=== PATIENT | male | born 1975 | race Caucasian/White ===

== ENCOUNTER 2017-02-20 21:24 | Emergency (ER) | payer OTHER ==
[~2017-02-20] VITALS: Ht 188 cm; Wt 131.1 kg
[~2017-02-20 21:24] MED LIST: FLUO20CA35 PO; LISI1TAB3 PO
[2017-02-20 21:39] VITALS: TEMP 37; Ht 188 cm; Wt 131.1 kg
[2017-02-20] MEDS ORDERED: LSN20 PO (22:14)
[2017-02-20] MEDS ORDERED: CETI10TA84 PO (22:14)
[2017-02-20] MEDS ORDERED: PRZ/40 PO (22:14)
[2017-02-20] MEDS ORDERED: OMEP20TA PO (22:14)
[2017-02-20] MEDS ORDERED: NRV/5 PO (22:14)
--- NOTE | 2017-02-20 22:38 | DIAGNOSTIC IMAGING REPORT ---
RIGHT ANKLE MIN 3 VIEWS ROUTINE CLINICAL HISTORY: Right ankle pain following injury. COMPARISON: None FINDINGS: Alignment of the right ankle is anatomic. Talar dome is intact. No acute fracture is identified. There is mild posterior calcaneal spurring. There is a small os trigonum. IMPRESSION: No acute fracture or dislocation of the right ankle. Electronically signed by: Jeromy Marino M.D. 02/20/2017 10:37 PM Dictated Date/Time: 02/20/2017 10:35 PM
--- NOTE | 2017-02-20 22:40 | DIAGNOSTIC IMAGING REPORT ---
RIGHT FOOT MIN 3 VIEWS ROUTINE CLINICAL HISTORY: Right ankle and foot pain following injury. COMPARISON: None FINDINGS: Tarsometatarsal joints are intact. No acute fracture is identified within the right foot. There is mild posterior calcaneal spurring. IMPRESSION: No acute fracture or dislocation within the right foot. Electronically signed by: Jeromy Marino M.D. 02/20/2017 10:38 PM Dictated Date/Time: 02/20/2017 10:37 PM
--- NOTE | 2017-02-20 23:05 | EMERGENCY ROOM VISIT NOTE ---
History Report prepared by Flavio: Ross Galarza Under the Supervision of: Dr. Nicole Singleton D.O. First contact with patient: 21:46 Chief Complaint: LEG PAIN,LEG INJURY Stated Complaint: PAIN IN R ANKLE AND KNEE, KNEE LOCKING UP History of Present Illness The patient is a 41 year old male who presents to the Emergency Room with complaints of right leg pain that began 1 week ago. He rates his pain a 6/10 in severity. At this time, he was standing up from a kneeled position, when he states his "leg moved, but his foot and ankle did not." The next day he went to [facility] and got an x-ray. They found an "accessary bone." He was given a brace and they told him to elevate his legs at night. They did not give him crutches or tell him to not walk on it. However, his pain is still occurring and now is shooting up his leg. Lying down and getting off his feet make his pain better. He denies any numbness. He has problems with his ankle due to an injury from his childhood. Source of History: patient Onset: 1 week ago Position: leg (right lower), ankle (right), foot (right) Symptom Intensity: 6/10 Quality: ache Timing: worsening Modifying Factors (Worsening): movement Note: He denies any other abnormal symptoms. Review of Systems See HPI for pertinent positives & negatives. A total of 6 systems reviewed and were otherwise negative. Past Medical & Surgical Medical Problems: (1) Allergy (2) Depression (3) Hypertension Family History Patient reports no known family medical history. Social History Smoking Status: Current Every Day Smoker Alcohol Use: none Drug Use: none Marital Status: single Occupation Status: employed Current/Historical Medications Scheduled Amlodipine Besylate (Amlodipine Besylate), 5 MG PO DAILY Cetirizine (Zyrtec), 10 MG PO DAILY Fluoxetine Hcl (Prozac), 40 MG PO DAILY Lisinopril (Lisinopril), 40 MG PO DAILY Omeprazole (Omeprazole), 20 MG PO DAILY Allergies Coded Allergies: Dog Dander (Verified Allergy, Intermediate, Sneezing, 02/20/17) Physical Exam Vital Signs Date Time Temp Pulse Resp B/P (MAP) Pulse Ox O2 Delivery O2 Flow Rate FiO2 02/20/17 23:36 74 20 149/102 94 02/20/17 21:39 37.0 90 18 145/93 94 Room Air Physical Exam GENERAL: alert, well appearing, well nourished, no distress, non-toxic EYE EXAM: normal conjunctiva, PERRL and EOM's grossly intact OROPHARYNX: no exudate, no erythema, lips, buccal mucosa, and tongue normal and mucous membranes are moist NECK: supple, no nuchal rigidity, no adenopathy, non-tender BACK: Back is symmetrical on inspection and there is no deformity, no midline tenderness, no CVA tenderness. SKIN: no rashes and no bruising UPPER EXTREMITIES: upper extremities are grossly normal. LOWER EXTREMITIES: Tenderness at the right lateral malleolus and over the ligaments inferior to that area, mild edema around lateral malleolus, normal pulses, normal capillary refill, normal sensorium, no other alexa tenderness, no tenderness to right tibia, fibula, or knee, no joint effusion. No fibular head tenderness. Patella in normal position. No joint effusions at ankle or knee, no calf tenderness b/l. NEURO EXAM: Normal sensorium, cranial nerves II-XII grossly intact, normal speech, no gross weakness of arms, no gross weakness of legs. Medical Decision & Procedures ER Provider Diagnostic Interpretation: Radiology results have been interpreted by the radiologist and reviewed by me. RIGHT FOOT MIN 3 VIEWS ROUTINE CLINICAL HISTORY: Right ankle and foot pain following injury. COMPARISON: None FINDINGS: Tarsometatarsal joints are intact. No acute fracture is identified within the right foot. There is mild posterior calcaneal spurring. IMPRESSION: No acute fracture or dislocation within the right foot. Electronically signed by: Jeromy Marino M.D. 02/20/2017 10:38 PM Dictated Date/Time: 02/20/2017 10:37 PM RIGHT ANKLE MIN 3 VIEWS ROUTINE CLINICAL HISTORY: Right ankle pain following injury. COMPARISON: None FINDINGS: Alignment of the right ankle is anatomic. Talar dome is intact. No acute fracture is identified. There is mild posterior calcaneal spurring. There is a small os trigonum. IMPRESSION: No acute fracture or dislocation of the right ankle. Electronically signed by: Jeromy Marino M.D. 02/20/2017 10:37 PM Dictated Date/Time: 02/20/2017 10:35 PM ED Course 2146: The patient was evaluated in room C7. A complete history and physical exam was performed. 2330: Upon reevaluation, the patient is feeling better. I discussed the findings and the treatment plan with the patient. He verbalizes agreement and understanding. He was discharged home. Medical Decision Differential diagnoses include sprain, occult fracture, gout, septic arthritis, and dislocation. Pt has been ambulating on likely an ankle sprain over the last week and concerned why sx aren't improving. Discussed f/u with ortho, non weight bearing for several days, use of crutches, continued elevation when seated, NSAIDS, discussed sx to watch/return for, he verbalized understanding and was agreeable with plan. No new trauma. Medication Reconcilliation Current Medication List: was personally reviewed by me Blood Pressure Screening Patient's blood pressure: Elevated blood pressure Blood pressure disposition: Elevated BP felt to be situational Impression Primary Impression: Ankle pain Additional Impression: Ankle sprain Scribe Attestation The scribe's documentation has been prepared under my direction and personally reviewed by me in its entirety. I confirm that the note above accurately reflects all work, treatment, procedures, and medical decision making performed by me. Departure Information Dispostion Home / Self-Care Referrals Danielle Glasgow PA-C (PCP) Forms HOME CARE DOCUMENTATION FORM, IMPORTANT VISIT INFORMATION Patient Instructions My [facility] Additional Instructions Please use the crutches until you are seen by orthopedics. Please see orthopedics in the office to re-evaluate your injury. You may continue using tylenol and ibuprofen as needed for pain. If you have any worsening pain, develop increased swelling, discoloration, numbness/tingling, or any other new or concerning symptoms, please return to the emergency room. Problem Qualifiers Primary Impression: Ankle pain Chronicity: acute Laterality: right Qualified Codes: M25.571 - Pain in right ankle and joints of right foot Additional Impression: Ankle sprain Encounter type: initial encounter Involved ligament of ankle: unspecified ligament Laterality: right Qualified Codes: S93.401A - Sprain of unspecified ligament of right ankle, initial encounter
[2017-02-20 23:36] VITALS: BP 149/102; PULSE 74; O2SAT 94
== END 2017-02-20 23:37 | disposition home or self-care (01) ==
LOC: C.EDB 21:25 → C.EDC 23:37
DX: S93.401A Sprain of unspecified ligament of right ankle, initial encounter (principal); I10 Essential (primary) hypertension; F32.9 Major depressive disorder, single episode, unspecified; Z79.899 Other long term (current) drug therapy; F17.200 Nicotine dependence, unspecified, uncomplicated; X50.9XXA Other and unspecified overexertion or strenuous movements or postures, initial encounter